=== PATIENT | male | born 1990 | race Caucasian/White ===

== ENCOUNTER 2019-06-29 22:09 | Inpatient (IN) | payer OTHER ==
[~2019-06-29] VITALS: Ht 188 cm; Wt 96.2 kg
--- NOTE | 2019-06-29 22:12 | PHYS DOC ---
Adult General Chief Complaint Chief Complaint: ".. I don't know ... I just started getting really bad abd. pain.. 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 I tried to eat some chicken nuggets... but I only was able to eat 4... 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 Patient denies any family history of colitis, Crohn's, renal stones. Patient denies any trauma. Patient denies any intake bad food. Patient denies any tarry or dark stools. No history immunosuppression. Review of Systems Review of Systems Constitutional: Denies fever or chills [] Eyes: Denies change in visual acuity, redness, or eye pain [] HENT: Denies nasal congestion or sore throat [] Respiratory: Denies cough or shortness of breath [] Cardiovascular: No additional information not addressed in HPI [] GI: Complaints of generalized abdominal pain. Complaints of, nausea, vomiting,. Denies bloody stools or diarrhea [] : Denies dysuria or hematuria [] Musculoskeletal: Denies back pain or joint pain [] Integument: Denies rash or skin lesions [] Neurologic: Denies headache, focal weakness or sensory changes [] Endocrine: Denies polyuria or polydipsia [] All other systems were reviewed and found to be within normal limits, except as documented in this note. Family History Family History Noncontributory Current Medications Current Medications See nursing for home meds Allergies Allergies Meperidine Physical Exam Physical Exam Constitutional: Well developed, well nourished, in acute distress, non-toxic appearance. [] HENT: Normocephalic, atraumatic, bilateral external ears normal, oropharynx moist, no oral exudates, nose normal. [] Eyes: PERRLA, EOMI, conjunctiva normal, no discharge. [] Neck: Normal range of motion, no tenderness, supple, no stridor. [] Cardiovascular:Heart rate regular rhythm, no murmur [] Lungs & Thorax: Bilateral breath sounds clear to auscultation [] Abdomen: Bowel sounds decreased, soft, generalized tenderness, no masses, no pulsatile masses. Rebound to mid abdomen. Skin: Warm, diaphoretic, no erythema, no rash. [] Back: No tenderness, no CVA tenderness. [] Extremities: No tenderness, no cyanosis, no clubbing, ROM intact, no edema. [] Mild psoas on right Neurologic: Alert and oriented X 3, normal motor function, normal sensory function, no focal deficits noted. [] Psychologic: Affect normal, judgement normal, mood normal. [] EKG EKG [] Radiology/Procedures Radiology/Procedures [address] [place] [id number] IMAGING REPORT Signed PATIENT: JENI ROSALES JACCOUNT: [id number] : 1990 LOCATION: ER AGE: 29 SEX: M EXAM STATUS: REG ER ORD. PHYSICIAN: JONNY COOPER MD REASON: Omni 300,75ml IV.Omni 240,30ml PO.Abd pain PROCEDURE: CT ABD PELV W/ORAL&IV CONTRAST EXAM: CT Abdomen and Pelvis without IV contrast CLINICAL HISTORY: Abdominal pain. COMPARISON: none TECHNIQUE: Helical CT of the abdomen and pelvis without intravenous contrast. Axial, coronal and sagittal reformatted images were generated. PQRS compliance statement - One or more of the following individualized dose reduction techniques were utilized for this study: 1. Automated exposure control 2. Adjustment of the mA and/or kV according to patient size 3. Use of iterative reconstruction technique FINDINGS: Lack of intravenous contrast limits evaluation of solid organs, vasculature, and lymph nodes. Lower chest: Subpleural linear opacities lower lobes likely scarring/atelectasis. Abdomen and Pelvis: No focal liver lesion. Calcified gallstone. No wall thickening or pericholecystic fluid. No biliary ductal dilatation. Spleen is unremarkable. Adrenal glands and pancreas are unremarkable. Symmetric nephrograms. No focal renal lesion. No hydronephrosis. Bladder is decompressed. Appendix is normal. No small or large bowel dilatation. Moderate colonic stool content. No abdominal or pelvic lymphadenopathy. No abdominal or pelvic ascites. Bones: Osseous structures are unremarkable. IMPRESSION: 1. No bowel obstruction. The loops of bowel described on prior radiograph are upper limits of normal in caliber. No abnormal bowel dilatation. 2. No abdominal pelvic lymphadenopathy. 3. Appendix is normal. Electronically signed by: Florentino Huynh MD (06/30/2019 1:19 AM) [facility] DICTATED AND SIGNED BY: FLORENTINO HUYNH MD DATE: 06/30/19 0119 CC: JONNY COOPER MD; PCP,NO ~ [][place] [address] IMAGING REPORT Signed PATIENT: JENI ROSALES JACCOUNT: [id number] : 1990 LOCATION: ER AGE: 29 SEX: M EXAM STATUS: REG ER ORD. PHYSICIAN: JONNY COOPER MD REASON: Abdominal pain x1.5hrs. No HX surgery or injury PROCEDURE: ACUTE ABDOMEN SERIES ACUTE ABDOMEN SERIES History: Abdominal pain Technique: Supine and upright views of the abdomen. Comparison: None. Findings: No consolidation or pleural effusion. No pneumothorax. No pneumoperitoneum. Multiple dilated air-filled loops of small bowel within the mid abdomen. Air and stool scattered throughout the imaged colon. Several small bowel air-fluid levels. Suggestion of small bowel wall thickening. Impression: 1. Multiple dilated air-filled loops of small bowel with air-fluid levels and suggestion of wall thickening, may represent ileus or enteritis and small bowel obstruction is not excluded. Recommend follow-up or CT to further evaluate. Electronically signed by: Jay Esteban DO (06/29/2019 11:10 PM) [facility] DICTATED AND SIGNED BY: JAY ESTEBAN DO DATE: 06/29/19 3617 CC: JONNY COOPER MD; PCP,NO ~ Course & Med Decision Making Course & Med Decision Making Pertinent Labs and Imaging studies reviewed. (See chart for details) Patient had minimal improvement of symptoms after 4 hours in the emergency department and treatment will with fluids, Toradol, Zofran, and morphine. Current CT does not show any surgical pathology. Because of symptoms will admit for hydration overnight. Repeat x-ray in morning. Suspect there is a component of colitis. Pt. admitted to Dr. Díaz for further tx and evaluation. Impression: 1. Abdomen Pain 2. Hypokalemia 3.1 [] Dragon Disclaimer Dragon Disclaimer This electronic medical record was generated, in whole or in part, using a voice recognition dictation system. Departure Departure: Disposition: 01 HOME/RESIDENCE PRIOR TO ADM Condition: STABLE Referrals: PCP,NO (PCP) Humberto Disclaimer This chart was dictated in whole or in part using Voice Recognition software in a busy, high-work load, and often noisy Emergency Department environment. It may contain unintended and wholly unrecognized errors or omissions. JONNY COOPER MD Jun 29, 2019 22:12
[2019-06-29] MEDS ORDERED: IV RINGERS SOLUTION,LACTATED 1,000 ML IV SCH (22:32)
[2019-06-29] MEDS ORDERED: ONDANSETRON PF 4 MG/2 ML VIAL. IVP ONE (22:45)
[2019-06-29] MEDS ORDERED: KETOROLAC 30 MG/ML VIAL. IVP ONE (22:45)
[2019-06-29] MEDS ORDERED: FAMOTIDINE 20 MG/2 ML VIAL IVP ONE (22:45)
[2019-06-29 22:50] LABS: BASO % 1 % (0-3); EOS # 0.2 x10^3/uL (0.0-0.7); EOS % 2 % (0-3); HEMATOCRIT 46.5 % (39.0-53.0); HEMOGLOBIN 16.4 g/dL (13.0-17.5); LYMPH # 2.6 x10^3/uL (1.0-4.8); LYMPH % 26 % (24-48); MEAN CORPUSCULAR HEMOGLOBIN 31 pg (25-35); MEAN CORPUSCULAR HGB CONC 35 g/dL (31-37); MEAN CORPUSCULAR VOLUME 88 fL (79-100); MONO # 0.7 x10^3/uL (0.0-1.1); MONO % 7 % (0-9); NEUT # 6.8 x10^3uL (1.8-7.7); NEUT % 66 % (31-73); PLATELET COUNT 224 x10^3/uL (140-400); RED BLOOD COUNT 5.31 x10^6/uL (4.30-5.70); RED CELL DISTRIBUTION WIDTH 13.5 % (11.5-14.5); WHITE BLOOD COUNT 10.3 x10^3/uL (4.0-11.0)
[2019-06-29 23:12] LABS: ALBUMIN 4.4 g/dL (3.4-5.0); CALCIUM 9.1 mg/dL (8.5-10.1); CREATININE 1.1 mg/dL (0.7-1.3); DIRECT BILIRUBIN 0.1 mg/dL (0.0-0.2); GFR 80.3; POTASSIUM 3.1 mmol/L (3.5-5.1); TOTAL BILIRUBIN 0.4 mg/dL (0.2-1.0); TOTAL PROTEIN 7.4 g/dL (6.4-8.2)
--- NOTE | 2019-06-29 23:13 | RAD ---
ACUTE ABDOMEN SERIES History: Abdominal pain Technique: Supine and upright views of the abdomen. Comparison: None. Findings: No consolidation or pleural effusion. No pneumothorax. No pneumoperitoneum. Multiple dilated air-filled loops of small bowel within the mid abdomen. Air and stool scattered throughout the imaged colon. Several small bowel air-fluid levels. Suggestion of small bowel wall thickening. Impression: 1. Multiple dilated air-filled loops of small bowel with air-fluid levels and suggestion of wall thickening, may represent ileus or enteritis and small bowel obstruction is not excluded. Recommend follow-up or CT to further evaluate. Electronically signed by: Jay Esteban DO (06/29/2019 11:10 PM) [facility]
[2019-06-29] MEDS ORDERED: IOHEXOL 300 MG/ML 75 ML VIAL. IV ONE (23:45)
[2019-06-29] MEDS ORDERED: CONTRAST GIVEN MC PRN (23:45)
[2019-06-29] MEDS ORDERED: IOHEXOL 240 MG/ML 50ML VIAL. PO ONE (23:45)
[2019-06-30] MEDS ORDERED: POTASSIUM CL 40MEQ IN 0.9%NACL 1,000 ML IV ONE (00:30)
[2019-06-30] MEDS ORDERED: ONDANSETRON PF 4 MG/2 ML VIAL. IVP ONE (00:30)
[2019-06-30] MEDS ORDERED: MORPHINE SULFATE 10 MG/ML SYRINGE. SQ ONE (01:00)
[2019-06-30 01:11] LABS: BARBITURATES NEG (NEG); BENZODIAZEPINES NEG (NEG); CANNABINOIDS NEG (NEG); COCAINE NEG (NEG); METHADONE NEG (NEG); OPIATES NEG (NEG); PHENCYCLIDINE NEG (NEG)
[2019-06-30 01:12] LABS: AMPHETAMINE/METHAMPHETAMINE NEG (NEG)
--- NOTE | 2019-06-30 01:21 | RAD ---
EXAM: CT Abdomen and Pelvis without IV contrast CLINICAL HISTORY: Abdominal pain. COMPARISON: none TECHNIQUE: Helical CT of the abdomen and pelvis without intravenous contrast. Axial, coronal and sagittal reformatted images were generated. PQRS compliance statement - One or more of the following individualized dose reduction techniques were utilized for this study: 1. Automated exposure control 2. Adjustment of the mA and/or kV according to patient size 3. Use of iterative reconstruction technique FINDINGS: Lack of intravenous contrast limits evaluation of solid organs, vasculature, and lymph nodes. Lower chest: Subpleural linear opacities lower lobes likely scarring/atelectasis. Abdomen and Pelvis: No focal liver lesion. Calcified gallstone. No wall thickening or pericholecystic fluid. No biliary ductal dilatation. Spleen is unremarkable. Adrenal glands and pancreas are unremarkable. Symmetric nephrograms. No focal renal lesion. No hydronephrosis. Bladder is decompressed. Appendix is normal. No small or large bowel dilatation. Moderate colonic stool content. No abdominal or pelvic lymphadenopathy. No abdominal or pelvic ascites. Bones: Osseous structures are unremarkable. IMPRESSION: 1. No bowel obstruction. The loops of bowel described on prior radiograph are upper limits of normal in caliber. No abnormal bowel dilatation. 2. No abdominal pelvic lymphadenopathy. 3. Appendix is normal. Electronically signed by: Florentino Balderas MD (06/30/2019 1:19 AM) [facility]
[2019-06-30 01:32] LABS: BACTERIA,URINE MOD /HPF (0-FEW); BILIRUBIN,URINE NEG (NEG); CLARITY,URINE CLEAR; COLOR,URINE AMBER; GLUCOSE,URINE NEG (NEG); NITRITE,URINE NEG (NEG); RBC,URINE OCC /HPF (0-2); SQUAMOUS EPITHELIAL CELL,UR OCC /LPF; UROBILINOGEN,URINE 0.2 mg/dL (0.2 mg/dL)
[2019-06-30] MEDS ORDERED: ONDANSETRON PF 4 MG/2 ML VIAL. IV PRN (02:15)
[2019-06-30] MEDS ORDERED: ACETAMINOPHEN 325 MG TABLET PO PRN ×2 (02:15→02:30)
[2019-06-30] MEDS ORDERED: POTASSIUM CHLORIDE 20MEQ 100 ML IV SCH (02:30)
[2019-06-30 02:31] LABS: AMYLASE 43 U/L (25-115); LIPASE 149 U/L (73-393)
[2019-06-30] MEDS ORDERED: IV RINGERS SOLUTION,LACTATED 1,000 ML IV SCH (03:00)
[2019-06-30 03:12] VITALS: BP 151/91
--- NOTE | 2019-06-30 03:24 | NUR ---
The patient, JENI ROSALES, 29 y/o, M admitted by COLLEEN WELLS MD, to room 117, was given written information regarding hospital policies, unit procedures and contact persons. Valuables were checked and left with the patient. Medical, family and social history reviewed and assessed. Patient given ice chips. Denies nausea. Desires to pursue a clear liquid diet. Will continue to monitor and advance as tolerated.
[2019-06-30] MEDS: POTASSIUM CHLORIDE 10MEQ 100 ML IV SCH ×4 (04:29→06:00)
[2019-06-30 05:27] VITALS: BP 143/79
--- NOTE | 2019-06-30 08:13 | RAD ---
Acute abdominal series with PA chest: Reason for examination: Abdominal pain. Follow-up exam. Comparison is made to previous study dated 06/29/2019. The heart size is normal. Mediastinum is unremarkable. Lung roque are clear. No acute bony abnormalities are seen. In the abdomen, there is no gross organomegaly. Psoas muscles are symmetric. The bowel gas pattern shows some residual contrast within the distal small intestine and there is some mild intestinal dilatation proximally. This appears to be improved however when compared to previous exam. No acute bony abnormalities are present. IMPRESSION: No acute cardiopulmonary disease. Continued presence of some mild small intestinal dilatation proximally but improved when compared to previous exam. Electronically signed by: Chaya Coon MD (06/30/2019 8:10 AM) [facility]
[2019-06-30 08:48] LABS: HEMATOCRIT 46.1 % (39.0-53.0); RED BLOOD COUNT 5.22 x10^6/uL (4.30-5.70); RED CELL DISTRIBUTION WIDTH 13.5 % (11.5-14.5); WHITE BLOOD COUNT 9.8 x10^3/uL (4.0-11.0)
[2019-06-30 08:49] LABS: ALBUMIN 3.9 g/dL (3.4-5.0); ALBUMIN/GLOBULIN RATIO 1.4 (1.0-1.7); CALCIUM 8.5 mg/dL (8.5-10.1); GFR 89.6; TOTAL BILIRUBIN 0.6 mg/dL (0.2-1.0); TOTAL PROTEIN 6.7 g/dL (6.4-8.2)
--- NOTE | 2019-06-30 09:30 | NUR ---
Patient tolerated clear liquid diet well, states that he feels like he is ready to go home. IV fluids stopped at this time. Awaiting for dr carrington to see patient.
[2019-06-30 10:33] VITALS: BP 129/80
--- NOTE | 2019-06-30 12:49 | HP ---
ADMIT DATE: 06/30/2019 HISTORY OF PRESENT ILLNESS: The patient is a 29-year-old male patient who came to the Emergency Room complaining of abdominal pain. 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 He denied any recent travel. 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 The patient denies any family history of colitis, Crohn's disease or renal stones. Denied any trauma, denied any intake of bad food. He was extensively investigated. His lab work showed white cell count that was normal. His chemistry was also unremarkable. Urinalysis and tox screen were negative. He has had acute abdomen series, which show he has multiple dilated air-filled loops of small bowel with air fluid levels and suggestion of wall thickening, may represent ileus or enteritis and small-bowel obstruction is not excluded. Recommended followup or a CT scan to further evaluate. He did have CT scan of the abdomen and pelvis, which basically showed no bowel obstruction. The loops of bowel described on prior radiographs as upper limit of normal in caliber. No abnormal bowel dilatation, no abdominal or pelvic lymphadenopathy. Appendix is normal. He did have another acute abdomen series, which showed no acute cardiopulmonary disease. Continued presence of mild small intestinal dilatation proximally, but improved when compared to previous exam. The patient was admitted for observation. Continued with IV fluid, started on a clear liquid diet. PAST MEDICAL HISTORY: Unremarkable. PAST SURGICAL HISTORY: Left knee arthroscopy and wisdom teeth extraction. ALLERGIES: TO DEMEROL. MEDICATIONS: He is currently on no medication by prescription or [id number]. FAMILY HISTORY: He has 1 older sister who has hypothyroidism. Father is alive at age of 50 and has hypertension. Mother is alive at the age of 54 and healthy. SOCIAL HISTORY: He is , has 1 child. He smokes cigar occasionally, drinks alcohol very occasionally. Does not use any drugs. REVIEW OF SYSTEMS: The patient denied any blurring of vision, cataract, glaucoma or macular degeneration. Denied any earache, tinnitus or sensorineural deafness. Denied any nosebleeds, stuffy nose or postnasal drip. Denied any sore throat, sore tongue, toothache, hoarseness of voice or difficulty swallowing. Denied any nausea, vomiting, diarrhea or constipation. His last bowel movement was yesterday afternoon. Denied any hematemesis, melena or hematochezia. Denied any dysuria, frequency or hematuria. Denied any chest pain or shortness of breath. PHYSICAL EXAMINATION: GENERAL: On arrival to the Emergency Room, he looked well and was clearly in no apparent respiratory distress. No pallor, jaundice, cyanosis or thyromegaly. No jugular venous distension. No lower limb edema. VITAL SIGNS: His heart rate was 74, blood pressure 148/94, temperature was 97.7, respiratory rate was 24 and oxygen saturation was 100% on room air. HEAD, EYES, EARS, NOSE AND THROAT: Showed normocephalic, atraumatic. NECK: Supple. HEART: Showed normal first and second heart sounds. No gallop or murmur. CHEST: Clear to auscultation. No crepitation or rhonchi. ABDOMEN: Distended with diffuse tenderness. No guarding or rigidity. No organomegaly. All hernial orifices intact. Bowel sounds normal. NEUROLOGIC: He was awake, alert, responding appropriately. All cranial nerves intact. EXTREMITIES: He moves extremities without difficulty. LABORATORY DATA: His lab work showed a white cell count of 10,300, his hemoglobin was 16, hematocrit 46, MCV 88 and platelet count 224,000. His serum sodium was 140, potassium 3.1, chloride 104, bicarbonate 25, anion gap of 11, BUN 16, creatinine 1.1, estimated GFR was 80 mL per minute. His glucose was 122, calcium was 9.1. Total bilirubin, AST, ALT, alkaline phosphatase were normal. Total protein 7.4, albumin 4.4. His amylase and lipase are all normal. His prothrombin time, INR and aPTT are all within normal range. Urinalysis was essentially unremarkable. Urine toxicology screen was negative. ASSESSMENT AND PLAN: In summary, this is a 29-year-old male patient who presented with diffuse abdominal pain. The initial acute abdomen series showed that he might have multiple air fluid levels, although the CT scan of the abdomen and pelvis was unremarkable. Repeat acute abdomen series had stated that he had continued presence of some mild small intestinal dilatation proximally, but improved when compared to previous exams. He was continued on intravenous fluid, antiemetic and pain medication. He was started on a clear liquid diet and advance as tolerated. COLLEEN WELLS MD DR: Bethel JOB#: [id number] / [id number]
--- NOTE | 2019-06-30 13:24 | NUR ---
Patient tolerated bland diet, continued to denies any nausea/vomitting or abdominal pain. States he has tightness but abdomen is soft and non tender. Patient feels comfortable going home today. Orders to DC home.
--- NOTE | 2019-06-30 13:50 | NUR ---
Patient discharged from facility at this time, ambulated off unit independently with staff. IV removed and belongings with patient. Pt verbalized DC instructions given.
== END 2019-06-30 13:54 | disposition home or self-care (01) | DRG 392 ==
LOC: ER 22:09 → 1 SOUTH 06-30 02:00 → ER 06-30 02:54
PROVIDERS: ADMIT Internal Medicine; ATTEND Internal Medicine
DX: K52.9 Noninfective gastroenteritis and colitis, unspecified (principal); K59.8 Other specified functional intestinal disorders; E87.6 Hypokalemia; F17.290 Nicotine dependence, other tobacco product, uncomplicated; Z82.49 Family history of ischemic heart disease and other diseases of the circulatory system; Z88.8 Allergy status to other drugs, medicaments and biological substances; Z79.899 Other long term (current) drug therapy
CPT/HCPCS: 36415; 74022; 74177; 80048; 80053; 80076; 80307; 81001; 82150; 83690; 85025; 85027; 85610; 85730; 87086; 96361; 96365; 96366; 96372; 96375; 96376; J1885; J2270; J2405; J3480; J3490; J7120; Q9966; Q9967; 99285-25